=== PATIENT | female | born 1985 | race Caucasian/White ===

== ENCOUNTER 2018-11-19 02:09 | Emergency (ER) | payer BC, MEDICAID ==
[~2018-11-19] VITALS: Ht 160 cm; Wt 120.2 kg
[2018-11-19 02:29] VITALS: BP_SYST 153
--- NOTE | 2018-11-19 02:29 | NUR ---
Patient to ER bed 5 to gown for evaluation. Side rails up.
--- NOTE | 2018-11-19 02:30 | NUR ---
Pt complains of left knee pain. Pt states she was taking something out of the trunk when she twisted her knee. Per patient, she felt and heard 3 pops on the left knee and "popped it back in." Incident happened around 7pm and finally felt the need to go to ED because she could not tolerate the pain. Pt was ambulatory but needed a wheelchair when brought into ED bed 5. No deformities noted. No other injuries/complaints per patient or noted.
--- NOTE | 2018-11-19 02:35 | NUR ---
ER Dr. Hinojosa at bedside examining patient.
[2018-11-19] MEDS ORDERED: KETOROLAC TROMETHAMINE 60 MG/2 ML VIAL IM ONE (02:45)
[2018-11-19 03:20] VITALS: BP_SYST 148
--- NOTE | 2018-11-19 03:20 | NUR ---
Patient given written and verbal discharge instructions and verbalizes understanding. ER MD discussed with patient the results and treatment provided. Patient in stable condition. ID arm band removed. Rx of [place] and Motrin given. Patient educated on pain management and to follow up with PMD. Pain Scale 2. Opportunity for questions provided and answered. Medication side effect fact sheet provided.
== END 2018-11-19 03:20 | disposition home or self-care (01) ==
LOC: SED 02:09
DX: S83.92XA Sprain of unspecified site of left knee, initial encounter (principal); R03.0 Elevated blood-pressure reading, without diagnosis of hypertension; X50.9XXA Other and unspecified overexertion or strenuous movements or postures, initial encounter; Y93.89 Activity, other specified; Y92.89 Other specified places as the place of occurrence of the external cause; Y99.8 Other external cause status
CPT/HCPCS: 29505; 73560; 96372; 99283; J1885